=== PATIENT | female | born 1940 | race Caucasian/White ===

== ENCOUNTER 2025-03-07 19:13 | Emergency (ER) | payer MEDICARE ==
[2025-03-07 19:30] VITALS: RESP 18
--- NOTE | 2025-03-07 19:48 | ED ---
Fall HPI - General Chief Complaint: Fall Stated Complaint: Fall Time Seen by Provider: 03/07/25 19:27 Source: patient, EMS, RN notes reviewed Mode of arrival: EMS Limitations: no limitations - History of Present Illness Initial Comments: This is an 84-year-old female presenting with via EMS for ongoing pain following a fall this morning at 0700. Patient states she fell backwards through an open door on her boat, falling onto the dock, striking her back and right elbow with ongoing pain and increased pain with inspiration. Patient denies striking head, loss of consciousness, neck pain or difficulty ambulating following the fall. Patient denies use of blood thinners. Patient states she called EMS due to the ongoing pain with inspiration, radiating to her abdomen. Patient states she received 50 mcg of fentanyl from EMS with no change in pain. Denies dizziness, diaphoresis, constant chest pain, shortness of breath, hemopt ysis, extremity paresthesia/weakness. Patient denies history of CAD, AMI, hypertension, hyperlipidemia, DM. MD Complaint: fall Onset/Timin -: hour(s) Time: 07:00 Fall From: standing Fall Witnessed: yes, by family Place Fall Occurred: other (billie) Loss of Consciousness: none Prolonged Down Time?: no Symptoms Prior to Fall: none Location: back Location - Extremities: Right: Elbow (Abrasion, skin tear) Context: tripped/slipped Associated Symptoms: shortness of breath - Related Data Home Medications Medication Instructions Recorded Confirmed No Known Home Medications 03/07/25 03/07/25 Allergies Allergy/AdvReac Type Severity Reaction Status Date / Time No Known Allergies Allergy Verified 03/07/25 20:29 Review of Systems ROS Statement: Those systems with pertinent positive or pertinent negative responses have been documented in the HPI. ROS Other: All systems not noted in ROS Statement are negative. Past Medical History Past Medical History: No Reported History History of Any Multi-Drug Resistant Organisms: None Reported Past Surgical History: Cholecystectomy, Hysterectomy Additional Past Surgical History / Comment(s): 2 back surgeries l4/l5 Smoking Status: Former smoker Past Alcohol Use History: None Reported Past Drug Use History: None Reported General Exam General appearance: alert, in no apparent distress Head exam: Present: atraumatic, normocephalic, normal inspection Eye exam: Present: normal appearance, PERRL, EOMI. Absent: scleral icterus, conjunctival injection, periorbital swelling ENT exam: Present: normal exam, mucous membranes moist Neck exam: Present: normal inspection. Absent: tenderness, meningismus, lymphadenopathy Respiratory exam: Present: normal lung sounds bilaterally, chest wall tenderness (Positive right rib tenderness posterior, axillary aspect without obvious deformity, crepitus). Absent: respiratory distress, wheezes, rales, rhonchi, stridor, accessory muscle use, decreased breath sounds, prolonged expiratory Cardiovascular Exam: Present: regular rate, normal rhythm, normal heart sounds. Absent: systolic murmur, diastolic murmur, rubs, gallop, clicks GI/Abdominal exam: Present: soft, normal bowel sounds. Absent: distended, tenderness, guarding, rebound, rigid Extremities exam: Present: full ROM, normal capillary refill, other (1 cm skin tear noted on right elbow without significant elbow tenderness, deformity, crepitus. FROM intact. Distal neurovascular motor function intact.). Absent: tenderness, pedal edema, joint swelling, calf tenderness Back exam: Present: normal inspection, full ROM. Absent: paraspinal tenderness, vertebral tenderness Neurological exam: Present: alert, oriented X3, CN II-XII intact Psychiatric exam: Present: normal affect, normal mood Skin exam: Present: warm, dry, intact, normal color. Absent: rash Course Vital Signs 03/07/25 19:23 Temperature 98.1 F Pulse Rate 55 L Respiratory 18 Rate Blood Pressure 143/66 O2 Sat by Pulse 97 Oximetry Medical Decision Making - Medical Decision Making Was pt. sent in by a medical professional or institution (, PA, BLANKING MACHINE OPERATOR, urgent care, hospital, or usp...) When possible be specific @ -[No] Did you speak to anyone other than the patient for history (EMS, parent, family, police, friend...)? What history was obtained from this source @ -[No] Did you review nursing and triage notes (agree or disagree)? Why? @ -[I reviewed and agree with nursing and triage notes] Were old charts reviewed (outside hosp., previous admission, EMS record, old EKG, old radiological studies, urgent care reports/EKG's, usp records)? Report findings @ -[No old charts were reviewed] Differential Diagnosis (chest pain, altered mental status, abdominal pain women, abdominal pain men, vaginal bleeding, weakness, fever, dyspnea, syncope, headache, dizziness, GI bleed, back pain, seizure, CVA, palpatations, mental health, musculoskeletal)? @ -Differential Musculoskeletal Muscular strain, contusion, ligament sprain, fracture, arthritis, septic arthritis, bursitis, cellulitis, muscle spasm, nerve compression, DVT, arterial occlusion, herpes zoster, electrolyte abnormality, tumor.... This is not meant to be in all inclusive list EKG interpreted by me (3pts min.). @ -Sinus bradycardia without ST deviation or T wave inversion. Ventricular rate 56 bpm, [place] 182 ms, QRS 86 ms, QTc 433 ms. X-rays interpreted by me (1pt min.). @ -[None done] CT interpreted by me (1pt min.). @ -[None done] U/S interpreted by me (1pt. min.). @ -[None done] What testing was considered but not performed or refused? (CT, X-rays, U/S, labs)? Why? @ -[None] What meds were considered but not given or refused? Why? @ -[None] Did you discuss the management of the patient with other professionals (professionals i.e. , PA, BLANKING MACHINE OPERATOR, lab, RT, psych nurse, social security specialist, atomic welder, teacher, supply officer, disease case manager rn)? Give summary @ -[No] Was smoking cessation discussed for >3mins.? @ -[No] Was critical care preformed (if so, how long)? @ -[No] Were there social determinants of health that impacted care today? How? (Homelessness, low income, unemployed, alcoholism, drug addiction, transportation, low edu. Level, literacy, decrease access to med. care, residential, rehab)? @ -[No] Was there de-escalation of care discussed even if they declined (Discuss DNR or withdrawal of care, Hospice)? DNR status @ -[No] What co-morbidities impacted this encounter? (DM, HTN, Smoking, COPD, CAD, Cancer, CVA, ARF, Chemo, Hep., AIDS, mental health diagnosis, sleep apnea, morbid obesity)? @ -[None] Was patient admitted / discharged? Hospital course, mention meds given and route, prescriptions, significant lab abnormalities, going to OR and other pertinent info. @ -[hospital course] Undiagnosed new problem with uncertain prognosis? @ -[No] Drug Therapy requiring intensive monitoring for toxicity (Heparin, Nitro, Insulin, Cardizem)? @ -[No] Were any procedures done? @ -[No] Diagnosis/symptom? @ -[default] Acute, or Chronic, or Acute on Chronic? @ -Acute Uncomplicated (without systemic symptoms) or Complicated (systemic symptoms)? @ -Uncomplicated Side effects of treatment? @ -[No] Exacerbation, Progression, or Severe Exacerbation? @ -[No] Poses a threat to life or bodily function? How? (Chest pain, [place], [place], pneumonia, PE, COPD, DKA, ARF, appy, cholecystitis, CVA, Diverticulitis, Homicidal, Suicidal, threat to staff... and all critical care pts) @ -[No] Disposition Clinical Impression: Fall, Contusion of right chest wall Disposition: HOME SELF-CARE Condition: Good Instructions (If sedation given, give patient instructions): Chest Wall Pain (ED) Additional Instructions: Alternate Tylenol/Motrin every 4 hours for pain. Apply cold compress to affected area for 10 minutes up to 4 times daily. Follow-up with PCP regarding any ongoing pain. Return to ER if experiencing worsening difficulty breathing. Is patient prescribed a controlled substance at d/c from ED?: No Referrals: Nonstaff,Physician [Primary Care Provider] - 1-2 days Jeannine Funez MD [REFERRING] - 1-2 days Time of Disposition: 21:12
[2025-03-07] MEDS: KETOROLAC 15 MG/ML 1 ML VIAL IVP STA (20:01)
[2025-03-07] MEDS: MORPHINE SULFATE 4 MG/ML SYRINGE IVP STA (20:02)
[2025-03-07] MEDS: ACETAMINOPHEN TAB 500 MG TAB PO STA (20:02)
--- NOTE | 2025-03-07 20:51 | XR ---
EXAMINATION TYPE: XR ribs RT w pa chest xray DATE OF EXAM: 03/07/2025 8:22 PM CLINICAL INDICATION:Female, 84 years old with history of Fall, pain with inspiration, right TTP; PHH, pain COMPARISON: None TECHNIQUE: XR ribs RT w pa chest xray; Frontal and oblique views of the ribs with frontal chest radio graph. FINDINGS: The ribs have an unremarkable appearance. Chronic-appearing senescent parenchymal changes. No pleural effusions or pneumothorax. Small rounded radiodense foci noted in the lower lung zones may represent calcified granulomas. The cardiac silhouette is normal in size. Atherosclerotic changes o f the aorta. The remaining osseous structures are intact. IMPRESSION: No acute osseous pathology. Rounded radiodense foci in the lower lung zones may represent granulomatous changes. This can be furt her characterized with a nonemergent outpatient CT chest as clinically indicated. [facility], , 03/07/2025 8:49 PM
[2025-03-07] MEDS: ACET/COD 300 MG/30 MG STARTER PACK 6 TAB BTL PO STA (21:36)
[2025-03-07 21:48] VITALS: BP 125/63; PULSE 62; TEMP 98
== END 2025-03-07 22:12 | disposition home or self-care (01) ==
LOC: EC 19:13
DX: S20.211A Contusion of right front wall of thorax, initial encounter (principal); Z87.891 Personal history of nicotine dependence; W01.198A Fall on same level from slipping, tripping and stumbling with subsequent striking against other object, initial encounter
CPT/HCPCS: 71101; 99284; 96374; 96375; J2270; J1885